=== PATIENT | female | born 1945 | race African-American/Black ===

== ENCOUNTER → 2016-10-16 | Outpatient (CLI) | payer MEDICARE, BC | LOC: RAD 12:40 | PROVIDERS: ATTEND Family Medicine | DX: Z12.31 Encounter for screening mammogram for malignant neoplasm of breast (principal); R59.0 Localized enlarged lymph nodes; E04.2 Nontoxic multinodular goiter | CPT/HCPCS: 76536; G0202; 77067 ==

== ENCOUNTER → 2016-10-30 | Outpatient (CLI) | payer MEDICARE, BC | LOC: RAD 10:54 | PROVIDERS: ATTEND Internal Medicine Gastroenterology | DX: K76.0 Fatty (change of) liver, not elsewhere classified (principal) | CPT/HCPCS: 76705 ==

== ENCOUNTER → 2016-12-12 | Outpatient (CLI) | payer MEDICARE, BC ==
[2016-12-12 15:38] LABS: FREE T3 3.13 pg/mL (2.77-5.27)
[2016-12-12 15:52] LABS: THYROID STIMULATING HORMONE 1.18 uIU/mL (0.47-4.68)
== END ==
LOC: OD 14:12
PROVIDERS: ATTEND Surgery
DX: E04.1 Nontoxic single thyroid nodule (principal)
CPT/HCPCS: 36415; 84439; 84443; 84481

== ENCOUNTER 2019-03-13 14:16 | Inpatient (IN) | payer MEDICARE, OTHER ==
--- NOTE | 2019-03-13 14:36 | ER Document Report ---
ED Medical Screen (RME) - General Chief Complaint: Hip Pain Stated Complaint: WEAKNESS Time Seen by Provider: 03/13/19 14:28 Primary Care Provider: XENA PADRON MD [Primary Care Provider] - Follow up as needed Mode of Arrival: Medic Information source: Patient, Emergency Med Personnel Notes: 73-year-old female with history of diabetes presents emergency department with complaints of weakness. EMS reports patient fell out of bed yesterday , she laid on the floor for 5 hours. Family noticed some change in speech. Also complains of weakness when she stands up. Complains of right hip pain with movement. Patient is calm and answering all questions appropriately at this time. I have greeted and performed a rapid initial assessment of this patient. A c omprehensive ED assessment and evaluation of the patient, analysis of test results and completion of the medical decision making process will be conducted by additional ED providers. Dictation of this chart was performed using voice recognition software; therefore, there may be some unintended grammatical errors. TRAVEL OUTSIDE OF THE [place] IN LAST 30 DAYS: No - Related Data Allergies/Adverse Reactions: No Known Allergies Allergy (Verified 08/23/15 10:26) Past Medical History - Past Medical History Cardiac Medical History: Reports: Hx Atrial Fibrillation - [place] 2010, Hx Coronary Artery Disease, Hx Hypercholesterolemia - DX TEN YEARS AGO, Hx Hypertension - DX 20 YEARS AGO Denies: Hx Heart Attack Pulmonary Medical History: Denies: Hx Asthma, Hx Bronchitis, Hx COPD, Hx Pneumonia Neurological Medical History: Denies: Hx Cerebrovascular Accident, Hx Seizures Endocrine Medical History: Reports: Hx Diabetes Mellitus Type 2 - DX IN 1984 GI Medical History: Reports: Hx Gastroesophageal Reflux Disease - DX [place] 2007, Hx Hiatal Hernia - [place] 2009 Musculoskeltal Medical History: Reports Hx Arthritis Psychiatric Medical History: Reports: Hx Anxiety - DX 10 YEARS AGO, Hx Depression - DX IN 1998 Past Surgical History: Reports: Hx Hysterectomy, Hx Open Heart Surgery - [place] 2001, Hx Oral Surgery. Denies: Hx Adenoidectomy, Hx Pacemaker - Immunizations Hx Diphtheria, Pertussis, Tetanus Vaccination: Yes Doctor's Discharge - Discharge Referrals: XENA PADRON MD [Primary Care Provider] - Follow up as needed
[2019-03-13 14:40] LABS: ABSOLUTE EOSINOPHILS # (AUTO) 0.1 10^3/uL (0.0-0.6); ABSOLUTE LYMPHOCYTES (AUTO) 1.5 10^3/uL (0.5-4.7); ABSOLUTE MONOCYTES (AUTO) 0.4 10^3/uL (0.1-1.4); ABSOLUTE NEUT (AUTO) 4.8 10^3/uL (1.7-8.2); BASOPHILS % (AUTO) 0.6 % (0-2); EOSINOPHILS % (AUTO) 1.6 % (0-6); HEMATOCRIT 35.3 % (36.0-47.0); HEMOGLOBIN 11.6 g/dL (12.0-15.5); LYMPHOCYTES % (AUTO) 21.9 % (13-45); MEAN CORPUSCULAR HEMOGLOBIN 26.6 pg (27.0-33.4); MEAN CORPUSCULAR HGB CONC 32.9 g/dL (32.0-36.0); MEAN CORPUSCULAR VOLUME 81 fl (80-97); MONOCYTES % (AUTO) 5.6 % (3-13); PLATELET COUNT 236 10^3/uL (150-450); RED BLOOD COUNT 4.36 10^6/uL (3.72-5.28); RED CELL DISTRIBUTION WIDTH 14.5 % (11.5-14.0); SEGMENTED NEUTROPHILS % (AUTO) 70.3 % (42-78); TOTAL CELLS COUNTED % (AUTO) 100 %; WHITE BLOOD COUNT 6.8 10^3/uL (4.0-10.5)
[2019-03-13 14:46] LABS: INTERNATIONAL RATION (INR) 1.19; PROTHROMBIN TIME 15.2 SEC (11.4-15.4)
[2019-03-13 14:47] LABS: PARTIAL THROMBOPLASTIN TIME 31.9 SEC (23.5-35.8)
[2019-03-13 14:59] LABS: ALBUMIN 4.3 g/dL (3.5-5.0); ALKALINE PHOSPHATASE 53 U/L (38-126); ANION GAP 12 (5-19); ASPARTATE AMINO TRANSFERASE 17 U/L (14-36); BILIRUBIN,DIRECT 0.1 mg/dL (0.0-0.4); BILIRUBIN,TOTAL 0.4 mg/dL (0.2-1.3); BLOOD UREA NITROGEN 25 mg/dL (7-20); CALCIUM 10.5 mg/dL (8.4-10.2); CARBON DIOXIDE 26 mmol/L (22-30); CHLORIDE 102 mmol/L (98-107); CREATINE KINASE 63 U/L (30-135); GLUCOSE 306 mg/dL (75-110); TOTAL PROTEIN 7.1 g/dL (6.3-8.2)
[2019-03-13 15:11] LABS: CREATINE KINASE MB 0.76 ng/mL (<4.55)
[2019-03-13 15:12] LABS: TROPONIN I < 0.012 ng/mL
--- NOTE | 2019-03-13 15:35 | RADIOLOGY REPORT (SQ) ---
EXAM DESCRIPTION: HIP RIGHT AP/LATERAL COMPLETED DATE/TIME: 03/13/2019 3:01 pm REASON FOR STUDY: fall, pain with movement COMPARISON: None. NUMBER OF VIEWS: Two views. TECHNIQUE: AP pelvis and additional surgical lateral view of the right hip. LIMITATIONS: None. FINDINGS: MINERALIZATION: Normal. RIGHT HIP: No fracture or dislocation. No worrisome bone lesions. LEFT HIP: No fracture or dislocation. No worrisome bone lesions. PUBIS AND ISCHIUM: No fracture. PELVIS: No fracture. SACRUM: No fracture or dislocation. No worrisome bone lesions. LOWER LUMBAR SPINE: Bilateral facet arthropathy at L5-S1 SOFT TISSUES: Atherosclerotic arterial vascular calcifications OTHER: No other significant finding. IMPRESSION: No acute fracture TECHNICAL DOCUMENTATION: JOB ID: [id number] [employer]- All Rights Reserved Reading location - IP/workstation name: [email or web address]
--- NOTE | 2019-03-13 15:37 | RADIOLOGY REPORT (SQ) ---
EXAM DESCRIPTION: CT HEAD WITHOUT COMPLETED DATE/TIME: 03/13/2019 3:19 pm REASON FOR STUDY: fell out of bed yesterday COMPARISON: CT brain 04/10/2012 TECHNIQUE: Axial images acquired through the brain without intravenous contrast. Images reviewed wi th bone, brain and subdural windows. Additional sagittal and coronal reconstructions were generated. Images stored on PACS. All CT scanners at this facility use dose modulation, iterative reconstruction, and/or weight based d osing when appropriate to reduce radiation dose to as low as reasonably achievable (ALARA). [facility]: Dose Right [facility]: CareDose [facility]: Dose Right [facility]: Teradose 4D [facility]: Smart Expanite RADIATION DOSE: CT Rad equipment meets quality standard of care and radiation dose reduction techniq ues were employed. CTDIvol: 53.2 mGy. DLP: 964 mGy-cm. mGy. LIMITATIONS: None. FINDINGS: VENTRICLES: Normal size and contour. CEREBRUM: No masses. No hemorrhage. No midline shift. No evidence for acute infarction. Age-approp riate bifrontal and biparietal small vessel disease with low attenuation in the hemispheric white mat ter CEREBELLUM: No masses. No hemorrhage. No alteration of density. No evidence for acute infarction. EXTRAAXIAL SPACES: No fluid collections. No masses. ORBITS AND GLOBE: No intra- or extraconal masses. Normal contour of globe without masses. Post bila teral cataract surgery CALVARIUM: No fracture. PARANASAL SINUSES: No fluid or mucosal thickening. SOFT TISSUES: No mass or hematoma. OTHER: No other significant finding. IMPRESSION: No acute findings EVIDENCE OF ACUTE STROKE: NO. COMMENT: Quality ID # [id number]: Final reports with documentation of one or more dose reduction techniques (e.g., Automated exposure control, adjustment of the mA and/or kV according to patient size, use of iterative reconstruction technique) TECHNICAL DOCUMENTATION: JOB ID: [id number] [employer]- All Rights Reserved Reading location - IP/workstation name: [email or web address]
[2019-03-13 16:18] LABS: APPEARANCE,URINE CLEAR; BILIRUBIN,URINE NEGATIVE (NEGATIVE); COLOR,URINE YELLOW; GLUCOSE, URINE 150 mg/dL (NEGATIVE); KETONES,URINE NEGATIVE (NEGATIVE); LEUKOCYTE ESTERASE,URINE NEGATIVE (NEGATIVE); NITRITE,URINE NEGATIVE (NEGATIVE); PROTEIN,URINE NEGATIVE (NEGATIVE); URINE SPECIFIC GRAVITY 1.016; UROBILINOGEN,URINE NEGATIVE mg/dL (<2.0)
[2019-03-13] MEDS ORDERED: ASPIRIN 325 MG TABLET PO ONE (21:10)
[2019-03-13 22:04] LABS: VENOUS BLOOD BASE EXCESS -1.5 mmol/L; VENOUS BLOOD HCO3 24.7 mmol/L (20-32); VENOUS BLOOD PCO2 47.9 mmHg (35-63); VENOUS BLOOD PH 7.33 (7.30-7.42)
--- NOTE | 2019-03-13 22:04 | EKG REPORT ---
SEVERITY:- ABNORMAL ECG - SINUS RHYTHM BORDERLINE LEFT AXIS DEVIATION BORDERLINE R WAVE PROGRESSION, ANTERIOR LEADS ABNORMAL T, CONSIDER ISCHEMIA, LATERAL LEADS : Confirmed by: Sukhjinder Tapia MD 13-Mar-2019 22:04:03
--- NOTE | 2019-03-13 23:33 | ER Document Report ---
ED General - General Chief Complaint: Hip Pain Stated Complaint: WEAKNESS Time Seen by Provider: 03/13/19 14:28 Mode of Arrival: Medic Notes: Patient is a 73-year-old female presents to the emergency department for gene ralized weakness. Patient's son is in the room. States yesterday at 1600 hrs., over 24 hours ago he noticed patient had right-sided drooping and generalized weakness. Son states patient is a diabetic and he thought potentially her blood sugars were "off." States he did feed the patient and then she never really went to sleep. States today she was attempting to get out of bed when she slipped. Patient states she "slid" out of the bed onto the floor. States she did sit there for an extended period of time when she was waiting for her son to come home. States when son attempted to help the patient up he inevitably dropped her onto her right hip. Patient's denying hitting her head, neck. Patient's denying any loss of consciousness. Patient states she overall just feels "weak." Patient's denying chest pain, shortness of breath, abdominal pain, dysuria, diarrhea. Son is in the room with patient voicing that the patient continues with right- sided facial droop. Past medical history: Diabetes, hyperlipidemia, DVT Medications: Metoprolol, metformin, HCTZ, Xarelto, losartan, aspirin, glipizide, sertraline TRAVEL OUTSIDE OF THE [place] IN LAST 30 DAYS: No - Related Data Allergies/Adverse Reactions: No Known Allergies Allergy (Verified 08/23/15 10:26) Past Medical History - General Information source: Patient, Emergency Med Personnel - Social History Smoking Status: Current Every Day Smoker Chew tobacco use (# tins/day): No Frequency of alcohol use: None Drug Abuse: None Family History: Reviewed & Not Pertinent Patient has suicidal ideation: No Patient has homicidal ideation: No - Past Medical History Cardiac Medical History: Reports: Hx Atrial Fibrillation - [place] 2010, Hx Coronary Artery Disease, Hx Hypercholesterolemia - DX TEN YEARS AGO, Hx Hypertension - DX 20 YEARS AGO Denies: Hx Heart Attack Pulmonary Medical History: Denies: Hx Asthma, Hx Bronchitis, Hx COPD, Hx Pneumonia Neurological Medical History: Denies: Hx Cerebrovascular Accident, Hx Seizures Endocrine Medical History: Reports: Hx Diabetes Mellitus Type 2 - DX [place] 1984 GI Medical History: Reports: Hx Gastroesophageal Reflux Disease - DX [place] 2007, Hx Hiatal Hernia - [place] 2009 Musculoskeletal Medical History: Reports Hx Arthritis Psychiatric Medical History: Reports: Hx Anxiety - DX 10 YEARS AGO, Hx Depression - DX [place] 1998 Past Surgical History: Reports: Hx Hysterectomy, Hx Open Heart Surgery - [place] 2001, Hx Oral Surgery. Denies: Hx Adenoidectomy, Hx Pacemaker - Immunizations Hx Diphtheria, Pertussis, Tetanus Vaccination: Yes Hx Pneumococcal Vaccination: 03/23/15 Review of Systems - Review of Systems Constitutional: denies: Fever EENT: No symptoms reported Cardiovascular: See HPI Respiratory: No symptoms reported Gastrointestinal: No symptoms reported Genitourinary: No symptoms reported Female Genitourinary: No symptoms reported Musculoskeletal: See HPI Skin: No symptoms reported Hematologic/Lymphatic: See HPI Neurological/Psychological: See HPI Physical Exam - Vital signs Vitals: Resp BP Pulse Ox 12 185/60 H 100 03/13/19 14:26 03/13/19 14:26 03/13/19 14:26 - Notes Notes: GENERAL: Alert, interacts well. Right facial droop noted. No slurred speech noted. HEAD: Normocephalic, atraumatic. EYES: Pupils equal, round, and reactive to light. Extraocular movements intact. ENT: Oral mucosa moist, tongue midline. Nares patent, no nasal septal hematoma, TM's intact. NECK: Full range of motion. Supple. Trachea midline. LUNGS: Clear to auscultation bilaterally, no wheezes, rales, or rhonchi. No respiratory distress. HEART: Regular rate and rhythm. No murmur ABDOMEN: Soft, non-tender. Non-distended. Bowel sounds present in all 4 quadrants. EXTREMITIES: Moves all 4 extremities spontaneously. No edema, normal radial and dorsalis pedis pulses bilaterally. No cyanosis. 5 out of 5 strength noted left upper and lower extremity. 4 out of 4 strength noted right upper and lower extremity. Right pronator drift noted. BACK: no cervical, thoracic, lumbar midline tenderness. No saddle anesthesia, normal distal neurovascular exam. NEUROLOGICAL: Alert and oriented x3. Normal speech. PSYCH: Normal affect, normal mood. SKIN: Warm, dry, normal turgor. No rashes or lesions noted. Course - Re-evaluation Re-evalutation: [place] stroke scale noted to be 2 with facial droop and right pronator drift. MENDS noted to be 5. Patient's blood sugar was initially noted to be elevated. On repeat examination upon my taking over care of the patient it was noted to be at 66. Patient has been alert and oriented the entire time in the emergency department. Patient was then given something to eat. Repeat blood sugar was noted to be 168. Patient continues with generalized weakness and right-sided facial droop despite correction of her blood sugars. I have discussed this case with hospitalist Dr. Yates. He will admit the patient to [facility]. - Vital Signs Vital signs: Temp Pulse Resp BP Pulse Ox 98.2 F 71 16 157/59 H 100 03/14/19 04:48 03/14/19 04:48 03/14/19 04:48 03/14/19 04:48 03/14/19 04:48 - Laboratory Result Diagrams: 03/14/19 05:34 03/14/19 05:34 Laboratory results interpreted by me: 03/13/19 03/13/19 03/13/19 14:31 14:31 14:36 Hgb 11.6 L Hct 35.3 L MCH 26.6 L RDW 14.5 H BUN 25 H Est GFR (MDRD) Non-Af 52 L Glucose 306 H POC Glucose 307 H Calcium 10.5 H Urine Glucose (UA) Urine Blood 03/13/19 03/13/19 03/13/19 16:00 21:29 22:26 Hgb Hct MCH RDW BUN Est GFR (MDRD) Non-Af Glucose POC Glucose 65 L 66 L Calcium Urine Glucose (UA) 150 H Urine Blood SMALL H 03/13/19 23:07 Hgb Hct MCH RDW BUN Est GFR (MDRD) Non-Af Glucose POC Glucose 168 H Calcium Urine Glucose (UA) Urine Blood Discharge - Discharge Clinical Impression: CVA (cerebral vascular accident) Qualifiers: CVA mechanism: unspecified Qualified Code(s): I63.9 - Cerebral infarction, unspecified Condition: Stable Disposition: ADMITTED INPATIENT Admitting Provider: Trudy (Hospitalist) Unit Admitted: [facility]
[2019-03-14] MEDS ORDERED: MAGNESIUM HYDROXIDE SUSP 30 ML UDCUP PO PRN (03:09)
[2019-03-14] MEDS ORDERED: TRAMADOL HCL 50 MG TABLET PO PRN (03:09)
[2019-03-14] MEDS ORDERED: TEMAZEPAM 15 MG CAPSULE PO PRN (03:09)
[2019-03-14] MEDS ORDERED: LABETALOL HCL INJ 20 MG/4 ML DISP.SYRIN IV PRN (03:09)
[2019-03-14] MEDS ORDERED: ONDANSETRON HCL INJ/PF 4 MG/2 ML SDV IV PRN (03:09)
[2019-03-14] MEDS ORDERED: GLUCAGON,HUMAN RECOMB 1 MG INJ IM PRN (03:09)
[2019-03-14] MEDS ORDERED: DOCUSATE SODIUM 100 MG CAPSULE PO PRN (03:09)
[2019-03-14] MEDS ORDERED: DEXTROSE 50%-WATER 25 GM/50 ML DISP.SYRIN IV PRN ×2 (03:09)
[2019-03-14] MEDS ORDERED: ACETAMINOPHEN 325 MG TABLET PO PRN (03:09)
[2019-03-14] MEDS ORDERED: DEXTROSE 40% GEL 15 GM TUBE PO PRN ×2 (03:09)
[2019-03-14] MEDS ORDERED: NALBUPHINE HCL INJ 10 MG/1 ML AMPULE IV PRN ×3 (03:16→03:38)
[2019-03-14] MEDS ORDERED: NICOTINE 21 MG/24 HR PATCH.TD24 TD PRN (03:16)
[2019-03-14] MEDS ORDERED: MAG HYDROX/AL HYDROX/SIMETH SUSP 30 ML UDCUP PO PRN (03:16)
[2019-03-14] MEDS ORDERED: LEVALBUTEROL HCL NEB 0.63 MG/3 ML AMPUL NEB PRN (03:16)
[2019-03-14] MEDS: INSULIN REG, HUMAN 100 UNIT/ML 3 ML VIAL (PYX) SUBCUT SCH ×5 (03:45→22:00)
--- NOTE | 2019-03-14 05:55 | PDOC H&P ---
History of Present Illness Admission Date/PCP: 03/13/19 23:41 JAMES GRACIA DO Patient complains of: Weakness History of Present Illness: BREANNA MADDOX is a 73 year old female who presented to the emergency room with a 2-day history of generalized weakness. Patient and her son relate that her weakness began on the afternoon of 03/12/2019 and has been persistent since onset. The weakness is moderate to severe and does prevent her from engaging in her usual activities. Patient's son has noted her right face to have more drooping than her usual baseline following 2 previous strokes. Patient admits that she went to get out of bed prior to coming to the hospital and was unable to stand up so she slid onto the floor in a sitting position. She complains of associated pain in her right hip but denies other associated or accompanying signs and symptoms. When her son returned home he brought her to the emergency room. In the emergency room she was found to have no evidence of acute intracranial hemorrhage and no acute CVA on her CAT scan of the head. And her laboratory evaluation was unremarkable with the exception of an elevated blood glucose. Patient was subsequently admitted to the hospital for further evaluation and treatment. Past Medical History Cardiac Medical History: Reports: Atrial Fibrillation, Coronary Artery Disease, Hyperlipidema, Hypertension Denies: Myocardial Infarction Pulmonary Medical History: Denies: Asthma, Bronchitis, Chronic Obstructive Pulmonary Disease (COPD), Pneumonia EENT Medical History: Denies: Cataracts, Ears - Hearing aids Neurological Medical History: Reports: Ischemic CVA Denies: Hemorrhagic CVA, Seizures Endocrine Medical History: Reports: Diabetes Mellitus Type 2 Denies: Diabetes Mellitus Type 1, Hyperthyroidism, Hypothyroidism Renal/ Medical History: Denies: Chronic Kidney Disease, Nephrolithiasis GI Medical History: Reports: Gastroesophageal Reflux Disease, Hiatal Hernia Denies: Cirrhosis, Crohn's Disease, Hepatitis, Ulcerative Colitis Musculoskeltal Medical History: Reports: Arthritis Denies: Gout Skin Medical History: Denies: Eczema, Psoriasis Psychiatric Medical History: Reports: Alcohol Dependency, Depression, Tobacco Dependency Denies: Substance Abuse Traumatic Medical History: Reports: None Hematology: Denies: Anemia, Bleeding Tendencies Infectious Medical History: Reports: None Past Surgical History Past Surgical History: Reports: Hysterectomy Social History Information Source: Patient, Relative Lives with: Family Smoking Status: Current Every Day Smoker Frequency of Alcohol Use: None Hx Recreational Drug Use: No Drugs: None Hx Prescription Drug Abuse: No - Advance Directive Resuscitation Status: Full Code Surrogate healthcare decision maker:: Abraham Maddox Family History Family History: DM, Hypertension. denies: CAD, Malignancy Parental Family History Reviewed: Yes Children Family History Reviewed: No Sibling(s) Family History Reviewed.: Yes Medication/Allergy Home Medications: Melatonin 3 mg PO QHS 08/21/11 Prilosec 20 mg PO DAILY 08/21/11 Losartan Potassium 100 mg PO DAILY 02/10/13 Sitagliptin Phos/Metformin HCl [Janumet 50-1,000 mg Tablet] 1,000 mg PO BID 02/10/13 Zolpidem Tartrate 1 tab PO QHS 02/10/13 Bupropion HCl [Wellbutrin Xl 300mg 24hr Tablet] 1 tab PO DAILY 08/22/15 Cyclobenzaprine HCl 5 mg PO ASDIR PRN 08/22/15 Fluticasone Furoate [Veramyst] 10 gm NS QHS 08/22/15 Hydrochlorothiazide 25 mg PO DAILY 08/22/15 Insulin Glargine,Hum.rec.anlog [Lantus] 35 unit SQ QHS 08/22/15 Nifedipine 10 mg PO DAILY 08/22/15 Rosuvastatin Calcium [Crestor 10 mg Tablet] 10 mg PO DAILY 08/22/15 Allergies/Adverse Reactions: No Known Allergies Allergy (Verified 08/23/15 10:26) Review of Systems Constitutional: PRESENT: as per HPI, weakness. ABSENT: chills, fever(s) Eyes: ABSENT: visual disturbances, other - Eye pain Ears: ABSENT: hearing changes, other - Ear pain Nose, Mouth, and Throat: ABSENT: mouth pain, sore throat Cardiovascular: ABSENT: chest pain, palpitations Respiratory: ABSENT: cough, dyspnea Gastrointestinal: ABSENT: abdominal pain, constipation, diarrhea, nausea, vomiting Genitourinary: ABSENT: dysuria, hematuria Musculoskeletal: PRESENT: as per HPI, muscle weakness, other - Pain on moving right hip. ABSENT: back pain, joint swelling Integumentary: ABSENT: pruritus, rash Neurological: PRESENT: as per HPI, focal weakness - Increased right facial droop, weakness. ABSENT: confusion, convulsions, memory loss, syncope Psychiatric: ABSENT: anxiety, depression Endocrine: ABSENT: cold intolerance, heat intolerance Hematologic/Lymphatic: ABSENT: easy bleeding, easy bruising Allergic/Immunologic: ABSENT: seasonal rhinorrhea Physical Exam Vital Signs: Temp Pulse Resp BP Pulse Ox 98.8 F 81 14 145/58 H 100 03/14/19 01:01 03/14/19 01:54 03/14/19 01:54 03/14/19 01:54 03/14/19 02:03 Intake & Output 03/12/19 03/13/19 03/14/19 23:59 23:59 23:59 Weight 72.1 kg General appearance: PRESENT: no acute distress, cooperative Head exam: PRESENT: atraumatic, normocephalic Eye exam: PRESENT: conjunctiva pink. ABSENT: conjunctival injection, scleral i cterus Ear exam: PRESENT: normal external ear exam. ABSENT: bleeding, drainage Mouth exam: PRESENT: dry mucosa, neck supple Neck exam: ABSENT: JVD, thyromegaly, tracheal deviation Respiratory exam: PRESENT: clear to auscultation [place], symmetrical, unlabored Cardiovascular exam: PRESENT: RRR. ABSENT: clicks, gallop, rubs Pulses: PRESENT: normal radial pulses, normal dorsalis pedis pul Vascular exam: PRESENT: normal capillary refill. ABSENT: pallor GI/Abdominal exam: PRESENT: normal bowel sounds, soft Rectal exam: PRESENT: deferred Extremities exam: PRESENT: tenderness - Mild tenderness to palpation over right hip. ABSENT: joint swelling, pedal edema Musculoskeletal exam: ABSENT: deformity, dislocation Neurological exam: PRESENT: alert, oriented to person, oriented to place, oriented to time, oriented to situation, CN II-XII grossly intact, motor sensory deficit - Weakness noted in all extremities right-sided weakness is more pronounced and left-sided weakness in both upper and lower extremities. Psychiatric exam: PRESENT: appropriate affect, normal mood Skin exam: PRESENT: dry, intact, warm. ABSENT: jaundice, rash, urticaria Results Laboratory Results: 03/13/19 14:31 03/13/19 14:31 03/13/19 03/13/19 03/13/19 14:31 14:31 16:00 WBC 6.8 RBC 4.36 Hgb 11.6 L Hct 35.3 L MCV 81 MCH 26.6 L MCHC 32.9 RDW 14.5 H Plt Count 236 Seg Neutrophils % 70.3 VBG pH VBG pCO2 VBG HCO3 VBG Base Excess Sodium 139.8 Potassium 4.0 Chloride 102 Carbon Dioxide 26 Anion Gap 12 BUN 25 H Creatinine 1.03 Est GFR ( Amer) > 60 Glucose 306 H Calcium 10.5 H Total Bilirubin 0.4 AST 17 Alkaline Phosphatase 53 Total Protein 7.1 Albumin 4.3 Urine Color YELLOW Urine Appearance CLEAR Urine pH 5.0 Ur Specific [employer] 1.016 Urine Protein NEGATIVE Urine Glucose (UA) 150 H Urine Ketones NEGATIVE Urine Blood SMALL H Urine Nitrite NEGATIVE Ur Leukocyte Esterase NEGATIVE Urine WBC (Auto) 1 Urine RBC (Auto) 0 03/13/19 21:40 WBC RBC Hgb Hct MCV MCH MCHC RDW Plt Count Seg Neutrophils % VBG pH 7.33 VBG pCO2 47.9 VBG HCO3 24.7 VBG Base Excess -1.5 Sodium Potassium Chloride Carbon Dioxide Anion Gap BUN Creatinine Est GFR ( Amer) Glucose Calcium Total Bilirubin AST Alkaline Phosphatase Total Protein Albumin Urine Color Urine Appearance Urine pH Ur Specific [employer] Urine Protein Urine Glucose (UA) Urine Ketones Urine Blood Urine Nitrite Ur Leukocyte Esterase Urine WBC (Auto) Urine RBC (Auto) 03/13/19 03/13/19 14:31 14:31 Creatine Kinase 63 CK-MB (CK-2) 0.76 Troponin I < 0.012 Impressions: Head CT 03/13/19 14:32 IMPRESSION: No acute findings EVIDENCE OF ACUTE STROKE: NO. Hip/Pelvis X-Ray 03/13/19 14:32 IMPRESSION: No acute fracture Assessment and Plan - Diagnosis (1) CVA (cerebral vascular accident) Qualifiers: CVA mechanism: unspecified Qualified Code(s): I63.9 - Cerebral infarction, unspecified Is this a current diagnosis for this admission?: Yes Plan: Patient will be admitted to the stroke protocol on [facility]. An MRI of the brain, a bilateral carotid Doppler study and an echocardiogram will be obtained. Patient will be evaluated by PT, OT and speech therapy. Patient will have therapy initiated as appropriate per protocol. She will be observed closely throughout her hospital stay. Daily CBCs and metabolic profiles will be obtained. Initial labs will include a hemoglobin A1c, a thyroid profile and a lipid profile. (2) HTN (hypertension) Qualifiers: Hypertension type: essential hypertension Qualified Code(s): I10 - Essential (primary) hypertension Is this a current diagnosis for this admission?: Yes Plan: Patient's hypertension will be treated by continuing her usual antihypertensive regimen. Her blood pressure will be monitored closely throughout her hospital stay. (3) HLD (hyperlipidemia) Qualifiers: Hyperlipidemia type: unspecified Qualified Code(s): E78.5 - Hyperlipidemia, unspecified Is this a current diagnosis for this admission?: Yes Plan: Patient's hyperlipidemia will be evaluated by obtaining a lipid profile. She will be continued on her usual therapeutic regimen and a cardiac diet. (4) Diabetes mellitus type 2 in nonobese Is this a current diagnosis for this admission?: Yes Plan: Patient will be continued on her usual diabetic regiment and a diabetic diet. Hemoglobin A1c will be obtained to assess efficacy of her current therapy. Before meals and at bedtime Accu-Cheks will be obtained with hyperglycemia being treated via sliding scale and a hypoglycemic protocol being in place. (5) Right hip pain Is this a current diagnosis for this admission?: Yes Plan: Patient's right hip pain will be treated with Nubain 5 to 10 mg IV every 3 hours on a as needed basis using a sliding scale for pain. - Time Time Spent with patient: 25-34 minutes Medications reviewed and adjusted accordingly: Yes Anticipated discharge: Home - Inpatient Certification Based on my medical assessment, after consideration of the patient's comorb idities, presenting symptoms, or acuity I expect that the services needed warrant INPATIENT care.: Yes I certify that my determination is in accordance with my understanding of Medicare's requirements for reasonable and necessary INPATIENT services [42 CFR 412.3e].: Yes Medical Necessity: Significant Comorbidiites Make Outpatient Treatment Too Risky, Need Close Monitoring Due to Risk of Patient Decompensation, Need For Continuous Telemetry Monitoring, Need for Neurological Checks, Need for Pain Control, Risk of Complication if Not Cared For in Hospital
[2019-03-14] MEDS ORDERED: HEPARIN SOD (PORCINE) 5,000 UNIT/ML 1 ML VIAL SUBCUT SCH (06:00)
[2019-03-14] MEDS: BUPROPION HCL 100 MG TABLET PO SCH ×3 (06:12→21:30)
[2019-03-14 06:24] LABS: HEMATOCRIT 33.8 % (36.0-47.0); HEMOGLOBIN 11.1 g/dL (12.0-15.5); MEAN CORPUSCULAR HEMOGLOBIN 26.7 pg (27.0-33.4); MEAN CORPUSCULAR VOLUME 81 fl (80-97); PLATELET COUNT 218 10^3/uL (150-450); RED BLOOD COUNT 4.17 10^6/uL (3.72-5.28); RED CELL DISTRIBUTION WIDTH 14.5 % (11.5-14.0); WHITE BLOOD COUNT 6.9 10^3/uL (4.0-10.5)
[2019-03-14 06:42] LABS: ALBUMIN 3.9 g/dL (3.5-5.0); ALKALINE PHOSPHATASE 52 U/L (38-126); ANION GAP 9 (5-19); ASPARTATE AMINO TRANSFERASE 16 U/L (14-36); BILIRUBIN,DIRECT 0.2 mg/dL (0.0-0.4); BILIRUBIN,TOTAL 0.4 mg/dL (0.2-1.3); BLOOD UREA NITROGEN 19 mg/dL (7-20); CARBON DIOXIDE 27 mmol/L (22-30); CHLORIDE 103 mmol/L (98-107); CHOLESTEROL 284.46 mg/dL (0-200); GLUCOSE 126 mg/dL (75-110); POTASSIUM 3.9 mmol/L (3.6-5.0); TOTAL PROTEIN 6.5 g/dL (6.3-8.2); TRIGLYCERIDES 144 mg/dL (<150)
[2019-03-14 07:36] LABS: DIRECT LDL 213 mg/dL (<100)
--- NOTE | 2019-03-14 09:17 | RADIOLOGY REPORT (SQ) ---
EXAM DESCRIPTION: MRI HEAD WITHOUT COMPLETED DATE/TIME: 03/14/2019 9:02 am REASON FOR STUDY: Weakness ?acute CVA COMPARISON: CT brain 03/13/2019 TECHNIQUE: Multiplanar imaging includes non-contrasted T1, T2, FLAIR, and diffusion with ADC map seq uences. Images stored on PACS. LIMITATIONS: None. FINDINGS: ANATOMY: No developmental anomalies. Normal vascular flow voids. Pituitary fossa normal. CSF SPACES: Normal in size and contour. No hemorrhage. CEREBRUM and POSTERIOR FOSSA: Diffusion-weighted images are positive for an acute nonhemorrhagic infa rct in the leftward half of the andreas, best shown on axial diffusion image . No mass effect. Minimal age-appropriate bifrontal and biparietal small vessel ischemic change in the hemispheric whit e matter, chronic. Internal auditory canals, cerebello-pontine angles, mastoids normal. DIFFUSION IMAGING: Positive for a small acute nonhemorrhagic infarct leftward half of the andreas. ORBITS: No masses. Globes post cataract surgery. PARANASAL SINUSES: No fluid levels. Mucosa normal. OTHER: No other significant finding. IMPRESSION: Acute nonhemorrhagic left pontine infarct. EVIDENCE OF ACUTE STROKE: YES. TECHNICAL DOCUMENTATION: JOB ID: [id number] [employer]- All Rights Reserved Reading location - IP/workstation name: [email or web address]
[2019-03-14] MEDS ORDERED: HYDROCHLOROTHIAZIDE 12.5 MG TABLET PO SCH (10:00)
[2019-03-14] MEDS ORDERED: CLOPIDOGREL BISULFATE 75 MG TABLET PO SCH (10:00)
[2019-03-14] MEDS ORDERED: LOSARTAN POTASSIUM 50 MG TABLET PO SCH (10:00)
[2019-03-14] MEDS: METFORMIN HCL 500 MG TABLET PO SCH ×2 (11:42→17:15)
[2019-03-14] MEDS: SERTRALINE HCL 50 MG TABLET PO SCH (11:42)
[2019-03-14] MEDS: ASPIRIN 81 MG TABLET, ENT COATED PO SCH (11:42)
[2019-03-14] MEDS: AMLODIPINE BESYLATE 2.5 MG TABLET PO SCH (11:42)
[2019-03-14] MEDS: FAMOTIDINE 20 MG TABLET PO SCH ×2 (11:42→21:27)
[2019-03-14] MEDS: SITAGLIPTIN PHOSPHATE 50 MG TABLET PO SCH ×2 (11:42→11:50)
--- NOTE | 2019-03-14 16:10 | PDOC PROGRESS REPORT ---
Subjective Progress Note for:: 03/14/19 Subjective:: [id number] female who presented to emergency room with 2 days of generalized weakness. Patient has a history of 2 previous CVAs will be admitted for recurrent CVA Reason For Visit: GENERALIZED WEAKNESS, ACUTE CVA Physical Exam Vital Signs: Temp Pulse Resp BP Pulse Ox 98.0 F 78 16 134/60 H 99 03/14/19 11:28 03/14/19 13:57 03/14/19 12:44 03/14/19 13:14 03/14/19 12:44 Intake & Output 03/13/19 03/14/19 03/15/19 06:59 06:59 06:59 Weight 65.4 kg General appearance: PRESENT: no acute distress Respiratory exam: PRESENT: clear to auscultation socorro. ABSENT: rales, rhonchi, wheezes Cardiovascular exam: PRESENT: RRR. ABSENT: diastolic murmur, rubs, systolic murmur Neurological exam: PRESENT: alert, motor sensory deficit, other - Patient has weakness of the right lower extremity graded 4/5. Otherwise no focal deficits. Psychiatric exam: PRESENT: appropriate affect, normal mood, other - Patient has no complaints. ABSENT: homicidal ideation, suicidal ideation Results Laboratory Results: 03/14/19 05:34 03/14/19 05:34 03/13/19 03/13/19 03/14/19 16:00 21:40 05:34 WBC 6.9 RBC 4.17 Hgb 11.1 L Hct 33.8 L MCV 81 MCH 26.7 L MCHC 33.0 RDW 14.5 H Plt Count 218 VBG pH 7.33 VBG pCO2 47.9 VBG HCO3 24.7 VBG Base Excess -1.5 Sodium Potassium Chloride Carbon Dioxide Anion Gap BUN Creatinine Est GFR ( Amer) Glucose Calcium Total Bilirubin AST Alkaline Phosphatase Total Protein Albumin Triglycerides Cholesterol LDL Cholesterol Direct VLDL Cholesterol HDL Cholesterol Urine Color YELLOW Urine Appearance CLEAR Urine pH 5.0 Ur Specific [place] 1.016 Urine Protein NEGATIVE Urine Glucose (UA) 150 H Urine Ketones NEGATIVE Urine Blood SMALL H Urine Nitrite NEGATIVE Ur Leukocyte Esterase NEGATIVE Urine WBC (Auto) 1 Urine RBC (Auto) 0 03/14/19 05:34 WBC RBC Hgb Hct MCV MCH MCHC RDW Plt Count VBG pH VBG pCO2 VBG HCO3 VBG Base Excess Sodium 138.9 Potassium 3.9 Chloride 103 Carbon Dioxide 27 Anion Gap 9 BUN 19 Creatinine 0.82 Est GFR ( Amer) > 60 Glucose 126 H Calcium 10.0 Total Bilirubin 0.4 AST 16 Alkaline Phosphatase 52 Total Protein 6.5 Albumin 3.9 Triglycerides 144 Cholesterol 284.46 H LDL Cholesterol Direct 213 H VLDL Cholesterol 29.0 HDL Cholesterol 47 Urine Color Urine Appearance Urine pH Ur Specific [place] Urine Protein Urine Glucose (UA) Urine Ketones Urine Blood Urine Nitrite Ur Leukocyte Esterase Urine WBC (Auto) Urine RBC (Auto) 03/13/19 03/13/19 14:31 14:31 Creatine Kinase 63 CK-MB (CK-2) 0.76 Troponin I < 0.012 Impressions: Head CT 03/13/19 14:32 IMPRESSION: No acute findings EVIDENCE OF ACUTE STROKE: NO. Hip/Pelvis X-Ray 03/13/19 14:32 IMPRESSION: No acute fracture Head MRI 03/14/19 00:00 IMPRESSION: Acute nonhemorrhagic left pontine infarct. EVIDENCE OF ACUTE STROKE: YES. Assessment and Plan - Diagnosis (1) CVA (cerebral vascular accident) Qualifiers: CVA mechanism: unspecified Qualified Code(s): I63.9 - Cerebral infarction, unspecified Is this a current diagnosis for this admission?: Yes Plan: Patient will be admitted to the stroke protocol on [facility]. An MRI of the brain, a bilateral carotid Doppler study and an echocardiogram will be obtained. Patient will be evaluated by PT, OT and speech therapy. Patient will have therapy initiated as appropriate per protocol. She will be observed closely throughout her hospital stay. Daily CBCs and metabolic profiles will be obtained. Initial labs will include a hemoglobin A1c, a thyroid profile and a lipid profile. 03/14/2019 patient had an MRI of the brain today that showed a acute nonhemorrhagic left pontine infarct, this would go along with her right-sided symptoms. Patient was supposed to be taking Xarelto as well as aspirin daily. The Xarelto was either for DVTs or atrial fib or both. We will hold the Plavix while the patient is also on heparin. (2) Diabetes mellitus type 2 in nonobese Is this a current diagnosis for this admission?: Yes Plan: Patient will be continued on her usual diabetic regiment and a diabetic diet. Hemoglobin A1c will be obtained to assess efficacy of her current therapy. Before meals and at bedtime Accu-Cheks will be obtained with hyperglycemia being treated via sliding scale and a hypoglycemic protocol being in place. 03/14/2019 patient's blood sugar on admission was 306 this morning is 126 and hemoglobin A1c is 8 patient is supposed to be taking glipizide 10 mg twice daily and Metformin 1000 mg twice daily. patient states she has been diabetic now for 30 years. (3) HTN (hypertension) Qualifiers: Hypertension type: essential hypertension Qualified Code(s): I10 - Essential (primary) hypertension Is this a current diagnosis for this admission?: Yes Plan: Patient's hypertension will be treated by continuing her usual antihypertensive regimen. Her blood pressure will be monitored closely throughout her hospital stay. 03/14/2019 at home patient was taking hydrochlorothiazide 25 mg daily losartan 100 mg daily Toprol XL 12.5 mg at bedtime. On admission blood pressure was elevated 185/60 however over the course of the last 24 hours her pressures come down to 134/60. Average would be around 160/65 Try to keep blood pressure about 160/70. Currently patient is only getting Norvasc 2.5 mg daily although she will get her Toprol tonight as well - Time Time Spent with patient: 35 or more minutes
[2019-03-14] MEDS: RIVAROXABAN 10 MG TABLET PO SCH (17:15)
[2019-03-14] MEDS: METOPROLOL SUCCINATE 25 MG TAB.SR.24H PO SCH (21:26)
[2019-03-14] MEDS: ATORVASTATIN CALCIUM 20 MG TABLET PO SCH (21:27)
[2019-03-14] MEDS: MELATONIN 3 MG TABLET PO SCH (21:27)
[2019-03-14] MEDS: INSULIN GLARGINE,HUM.REC.ANLOG 1,000 UNIT/10 ML VIAL SUBCUT SCH (21:38)
[2019-03-15] MEDS: BUPROPION HCL 100 MG TABLET PO SCH ×3 (06:05→23:15)
[2019-03-15] MEDS: METFORMIN HCL 500 MG TABLET PO SCH ×2 (08:44→16:07)
[2019-03-15] MEDS: INSULIN REG, HUMAN 100 UNIT/ML 3 ML VIAL (PYX) SUBCUT SCH ×4 (08:44→23:14)
--- NOTE | 2019-03-15 10:14 | PDOC PROGRESS REPORT ---
Subjective Progress Note for:: 03/15/19 Subjective:: 03/14/19 is a 89-year-old female who presented to emergency room with 2 days of generalized weakness. Patient has a history of 2 previous CVAs will be admitted for recurrent CVA 03/15/2019 patient states that her right leg is still weak and she feels that her right upper extremity is "clumsy". Patient also feels like she is having some difficulty with her speech. MRI is positive for a left pontine infarct Reason For Visit: GENERALIZED WEAKNESS, ACUTE CVA Physical Exam Vital Signs: Temp Pulse Resp BP Pulse Ox 98.3 F 82 17 158/61 H 96 03/15/19 08:25 03/15/19 08:25 03/15/19 08:25 03/15/19 08:25 03/15/19 08:25 Intake & Output 03/14/19 03/15/19 03/16/19 06:59 06:59 06:59 Intake Total 1075 Balance 1075 Weight 65.4 kg General appearance: PRESENT: no acute distress, other - Speaking in full sentenc es Respiratory exam: PRESENT: clear to auscultation socorro. ABSENT: rales, rhonchi, wheezes Cardiovascular exam: PRESENT: RRR. ABSENT: diastolic murmur, rubs, systolic murmur Neurological exam: PRESENT: alert, awake, oriented to person, oriented to place, oriented to time, oriented to situation, CN II-XII grossly intact, other - Right upper extremity and right lower extremity is weaker than left. No obvious facial weakness.. ABSENT: motor sensory deficit Psychiatric exam: PRESENT: appropriate affect, normal mood. ABSENT: homicidal ideation, suicidal ideation Results Laboratory Results: 03/14/19 05:34 03/14/19 05:34 03/13/19 03/13/19 14:31 14:31 Creatine Kinase 63 CK-MB (CK-2) 0.76 Troponin I < 0.012 Impressions: Head CT 03/13/19 14:32 IMPRESSION: No acute findings EVIDENCE OF ACUTE STROKE: NO. Hip/Pelvis X-Ray 03/13/19 14:32 IMPRESSION: No acute fracture Head MRI 03/14/19 00:00 IMPRESSION: Acute nonhemorrhagic left pontine infarct. EVIDENCE OF ACUTE STROKE: YES. Assessment and Plan - Diagnosis (1) CVA (cerebral vascular accident) Qualifiers: CVA mechanism: unspecified Qualified Code(s): I63.9 - Cerebral infarction, unspecified Is this a current diagnosis for this admission?: Yes Plan: Patient will be admitted to the stroke protocol on [facility]. An MRI of the brain, a bilateral carotid Doppler study and an echocardiogram will be obtained. Patient will be evaluated by PT, OT and speech therapy. Patient will have therapy initiated as appropriate per protocol. She will be observed closely throughout her hospital stay. Daily CBCs and metabolic profiles will be obtained. Initial labs will include a hemoglobin A1c, a thyroid profile and a lipid profile. 03/14/2019 patient had an MRI of the brain today that showed a acute nonhemorrhagic left pontine infarct, this would go along with her right-sided symptoms. Patient was supposed to be taking Xarelto as well as aspirin daily. The Xarelto was either for DVTs or atrial fib or both. We will hold the Plavix while the patient is also on heparin. 03/15/2019 patient is on 81 mg aspirin, Xarelto 10 mg daily, as well as heparin every 8 hours for DVT prophylaxis. Patient is waiting to have a carotid Doppler today as well as an echo patient will probably need another MRI scan of her brain prior to discharge or sooner if she continues to evolve with her infarct (2) Diabetes mellitus type 2 in nonobese Is this a current diagnosis for this admission?: Yes Plan: Patient will be continued on her usual diabetic regiment and a diabetic diet. Hemoglobin A1c will be obtained to assess efficacy of her current therapy. Before meals and at bedtime Accu-Cheks will be obtained with hyperglycemia being treated via sliding scale and a hypoglycemic protocol being in place. 03/14/2019 patient's blood sugar on admission was 306 this morning is 126 and hemoglobin A1c is 8 patient is supposed to be taking glipizide 10 mg twice daily and Metformin 1000 mg twice daily. patient states she has been diabetic now for 30 years. 03/15/2019 she is currently being managed with a sliding scale plus her regular meds. Glucose is under much better control today with morning fingerstick of 123 (3) HTN (hypertension) Qualifiers: Hypertension type: essential hypertension Qualified Code(s): I10 - Essential (primary) hypertension Is this a current diagnosis for this admission?: Yes Plan: Patient's hypertension will be treated by continuing her usual antihypertensive regimen. Her blood pressure will be monitored closely throughout her hospital stay. 03/14/2019 at home patient was taking hydrochlorothiazide 25 mg daily losartan 100 mg daily Toprol XL 12.5 mg at bedtime. On admission blood pressure was elevated 185/60 however over the course of the last 24 hours her pressures come down to 134/60. Average would be around 160/65 Try to keep blood pressure about 160/70. Currently patient is only getting Norv asc 2.5 mg daily although she will get her Toprol tonight as well 03/15/2019 last night and this morning her blood sugars have been fairly well controlled approximately 144/56, although it did go up a little bit this morning 158/61. This is a good range for her certainly I would not try to get it any lower than 144 systolic. With evidence of the ischemic stroke I think she will need a little pressure to perfuse - Time Time Spent with patient: 35 or more minutes
[2019-03-15] MEDS: AMLODIPINE BESYLATE 2.5 MG TABLET PO SCH (11:08)
[2019-03-15] MEDS: ASPIRIN 81 MG TABLET, ENT COATED PO SCH (11:08)
[2019-03-15] MEDS: SERTRALINE HCL 50 MG TABLET PO SCH (11:08)
[2019-03-15] MEDS: FAMOTIDINE 20 MG TABLET PO SCH ×2 (11:08→23:12)
--- NOTE | 2019-03-15 14:29 | RADIOLOGY REPORT (SQ) ---
EXAM DESCRIPTION: CAROTID DOPPLER COMPLETED DATE/TIME: 03/15/2019 1:56 pm REASON FOR STUDY: Weakness ?acute CVA COMPARISON: None. TECHNIQUE: Grayscale ultrasound, Doppler velocity and spectra, and color Doppler images acquired of the extra-cranial carotid and vertebral arteries. Images stored on PACS. LIMITATIONS: None. FINDINGS: RIGHT CAROTID CCA Velocities: Within normal limits. ICA Velocities Peak systolic 0.67 m/s. End diastolic 0.15 m/s. Proximal ICA/CCA peak systolic ratio 0.88. Focal plaque in the proximal internal carotid artery. LEFT CAROTID CCA Velocities: Within normal limits. ICA Velocities Peak systolic 0.75 m/s. End diastolic 0.18 m/s. Proximal ICA/CCA peak systolic ratio 0.86. Spectra normal. No significant plaque. VERTEBRAL ARTERIES: Antegrade flow. Normal waveforms. SUBCLAVIAN ARTERIES: No finding. OTHER: No other significant finding. IMPRESSION: NO HEMODYNAMICALLY SIGNIFICANT STENOSIS. COMMENT: Quality ID #[id number]: Velocity criteria are extrapolated from the diameter data as defined by t he Society of Radiologists in Ultrasound Consensus Conference. Radiology 2003: 229; 340-346. TECHNICAL DOCUMENTATION: JOB ID: [id number] [employer]- All Rights Reserved Reading location - IP/workstation name: [email or web address]
[2019-03-15] MEDS: RIVAROXABAN 10 MG TABLET PO SCH (16:08)
--- NOTE | 2019-03-15 19:18 | XCELERA REPORT ---
[address] [address] Transthoracic Echocardiogram Report Name: BREANNA ROJAS Age: 73 yrs Gender: Female : 1945 Patient Status: Inpatient Patient Location: [address] [place], [place] [address] Study Date: 03/15/2019 10:48 AM Height: 65 in Weight: 114 lb BSA: 1.6 m2 Procedure: A two-dimensional transthoracic echocardiogram with color flow and Doppler was performed. The study was technically difficult with many images being suboptimal in quality. Reason For Study: Weakness ?acute CVA History: CVA. Ordering Physician: SERGEY IRVING Performed By: Velma Howard Interpretation Summary There is no obvious cardiac source of embolus noted on this transthoracic echocardiogram. Follow-up with a RONAN is suggested if cardiac source is still suspected. The left ventricle is normal in size. There is mild concentric left ventricular hypertrophy. LV EF is 65% The left ventricular ejection fraction is within normal limits. Doppler measurements suggest impaired left ventricular relaxation, which is associated with grade I/IV or mild diastolic dysfunction The left ventricular wall motion is normal. There is no thrombus. Cannot assess ASD ,VSD , or PFO. The right ventricle is not well visualized secondary to technical limitations Right atrium not well visualized secondary to technical limitations The left atrial size is normal. There is no evidence of mitral valve prolapse. There is no vegetation seen on the mitral valve. There is no mitral valve stenosis. There is a trace amount of mitral regurgitation There is no aortic valvular vegetation. There is aortic sclerosis without aortic stenosis. There is no LVOT obstruction. No aortic regurgitation is present. There is no tricuspid stenosis. There is a trace amount of tricuspid regurgitation Right ventricular systolic pressure is normal. RVSp is 22t o 27 mm of Hg , with RA mean of 5 to 10. There is no pulmonic valvular stenosis. There is a trace amount of pulmonic regurgitation The aortic root is normal size. The inferior vena cava appeared normal and decreased > 50% with respiration (RAP 5-10 mmHg) There is no pericardial effusion. There is no obvious cardiac source of embolus noted on this transthoracic echocardiogram. Follow-up with a RONAN is suggested if cardiac source is still suspected MMode/2D Measurements & Calculations RVDd: 3.7 cm LVIDd: 3.3 cm FS: 37.2 % Ao root diam: 2.7 cm IVSd: 1.00 cm LVIDs: 2.1 cm EDV(Teich): 43.8 ml Ao root area: 5.8 cm2 LVPWd: 1.2 cm ESV(Teich): 13.8 ml EF(Teich): 68.4 % Doppler Measurements & Calculations MV E max ashkan: MV dec slope: Ao V2 max: LV V1 max P.9 cm/sec 324.0 cm/sec2 144.0 cm/sec 3.4 mmHg MV A max ashkan: MV dec time: 0.22 secAo max P.3 mmHgLV V1 max: 92.5 cm/sec 91.6 cm/sec MV E/A: 0.78 PA V2 max: PI end-d ashkan: TR max ashkan: 105.4 cm/sec 78.4 cm/sec 199.4 cm/sec PA max P.4 mmHg TR max P.6 mmHg Left Ventricle The left ventricle is normal in size. There is mild concentric left ventricular hypertrophy. LV EF is 65%. The left ventricular ejection fraction is within normal limits. Doppler measurements suggest impaired left ventricular relaxation, which is associated with grade I/IV or mild diastolic dysfunction. The left ventricular wall motion is normal. There is no thrombus. Cannot assess ASD ,VSD , or PFO. Right Ventricle The right ventricle is not well visualized secondary to technical limitations. Atria Right atrium not well visualized secondary to technical limitations. The left atrial size is normal. Mitral Valve There is no evidence of mitral valve prolapse. There is no vegetation seen on the mitral valve. There is no mitral valve stenosis. There is a trace amount of mitral regurgitation. Aortic Valve There is no aortic valvular vegetation. There is aortic sclerosis without aortic stenosis. There is no LVOT obstruction. No aortic regurgitation is present. Tricuspid Valve There is no tricuspid stenosis. There is a trace amount of tricuspid regurgitation. Right ventricular systolic pressure is normal. RVSp is 22t o 27 mm of Hg , with RA mean of 5 to 10. Pulmonic Valve There is no pulmonic valvular stenosis. There is a trace amount of pulmonic regurgitation. Great Vessels The aortic root is normal size. The inferior vena cava appeared normal and decreased > 50% with respiration (RAP 5-10 mmHg). Effusions There is no pericardial effusion. : SERGEY IRVING, Simi
[2019-03-15] MEDS: INSULIN GLARGINE,HUM.REC.ANLOG 1,000 UNIT/10 ML VIAL SUBCUT SCH (22:40)
[2019-03-15] MEDS: ATORVASTATIN CALCIUM 20 MG TABLET PO SCH (23:13)
[2019-03-15] MEDS: METOPROLOL SUCCINATE 25 MG TAB.SR.24H PO SCH (23:13)
[2019-03-15] MEDS: MELATONIN 3 MG TABLET PO SCH (23:13)
[2019-03-16] MEDS: BUPROPION HCL 100 MG TABLET PO SCH ×2 (06:05→14:03)
[2019-03-16] MEDS: INSULIN REG, HUMAN 100 UNIT/ML 3 ML VIAL (PYX) SUBCUT SCH ×2 (10:13→12:33)
[2019-03-16] MEDS: AMLODIPINE BESYLATE 2.5 MG TABLET PO SCH (10:17)
[2019-03-16] MEDS: FAMOTIDINE 20 MG TABLET PO SCH (10:17)
[2019-03-16] MEDS: ASPIRIN 81 MG TABLET, ENT COATED PO SCH (10:17)
[2019-03-16] MEDS: SERTRALINE HCL 50 MG TABLET PO SCH (10:17)
[2019-03-16] MEDS: METFORMIN HCL 500 MG TABLET PO SCH (10:17)
[2019-03-16 12:30] VITALS: BP 139/69
--- NOTE | 2019-03-17 18:22 | PDOC DISCHARGE SUMMARY ---
Impression - Admit/DC Date/PCP Admission Date/Primary Care Provider: 03/13/19 23:41 JAMES GRACIA DO Discharge Date: 03/16/19 - Discharge Diagnosis (1) Acute CVA (cerebrovascular accident) Is this a current diagnosis for this admission?: Yes (2) Diabetes mellitus type 2 in nonobese Is this a current diagnosis for this admission?: Yes (3) HLD (hyperlipidemia) Is this a current diagnosis for this admission?: Yes (4) HTN (hypertension) Is this a current diagnosis for this admission?: Yes - Additional Information Resuscitation Status: Full Code Discharge Diet: As Tolerated Discharge Activity: Activity As Tolerated, Balance Activity w/Rest Referrals: JAMES GRACIA DO [Primary Care Provider] - 03/25/19 4:00 pm Prescriptions: Atorvastatin Calcium [Lipitor 40 mg Tablet] 40 mg PO QHS #30 tablet Amlodipine Besylate [Norvasc 2.5 mg Tablet] 2.5 mg PO DAILY #30 tablet Home Medications: Losartan Potassium 100 mg PO DAILY 02/10/13 Hydrochlorothiazide 25 mg PO DAILY 08/22/15 Aspirin [Aspir-Low] 81 mg PO DAILY 03/14/19 Glipizide [Glucotrol 10 mg Tablet] 10 mg PO BID 03/14/19 Metformin HCl 1,000 mg PO BIDBS 03/14/19 Metoprolol Succinate [Toprol Xl 25 mg Tab.sr] 12.5 mg PO HSP PRN 03/14/19 Rivaroxaban [Xarelto] 2.5 mg PO BID 03/14/19 Sertraline HCl [Zoloft 50 mg Tablet] 50 mg PO DAILY 03/14/19 Amlodipine Besylate [Norvasc 2.5 mg Tablet] 2.5 mg PO DAILY #30 tablet 03/16/19 Atorvastatin Calcium [Lipitor 40 mg Tablet] 40 mg PO QHS #30 tablet 03/16/19 History of Present Illiness History of Present Illness: Admitting hospitalist's H&P: BREANNA ROJAS is a 73 year old female who presented to the emergency room with a 2-day history of generalized weakness. Patient and her son relate that her weakness began on the afternoon of 03/12/2019 and has been persistent since onset. The weakness is moderate to severe and does prevent her from engaging in her usual activities. Patient's son has noted her right face to have more drooping than her usual baseline following 2 previous strokes. Patient admits that she went to get out of bed prior to coming to the hospital and was unable to stand up so she slid onto the floor in a sitting position. She complains of associated pain in her right hip but denies other associated or accompanying signs and symptoms. When her son returned home he brought her to the emergency room. In the emergency room she was found to have no evidence of acute intracranial hemorrhage and no acute CVA on her CAT scan of the head. And her laboratory evaluation was unremarkable with the exception of an elevated blood glucose. Patient was subsequently admitted to the hospital for further evaluation and treatment. Hospital [facility] Hospital Course: Patient was admitted for possible CVA. She presented with generalized weakness but she does have a subtle but more prominent right-sided weakness. Her MRI did reveal an acute left pontine infarct. She was in a TPA candidate. She was started on atorvastatin. She was continued on antiplatelets. Amlodipine was also added to her antihypertensive regimen. Patient did have improvement in her weakness. She was evaluated by PT who recommended home health and home PT. Physical Exam Vital Signs: Temp Pulse Resp BP Pulse Ox 98.2 F 71 18 139/69 H 97 03/16/19 14:45 03/16/19 14:45 03/16/19 14:45 03/16/19 11:48 03/16/19 14:45 Intake & Output 03/16/19 03/17/19 03/18/19 06:59 06:59 06:59 Intake Total 1182 360 Balance 1182 360 Weight 145 lb 1.027 oz General appearance: PRESENT: no acute distress, well-developed, well-nourished Head exam: PRESENT: atraumatic, normocephalic Eye exam: PRESENT: conjunctiva pink, EOMI, PERRLA. ABSENT: scleral icterus Ear exam: PRESENT: normal external ear exam Mouth exam: PRESENT: moist, tongue midline Neck exam: ABSENT: carotid bruit, JVD, lymphadenopathy, thyromegaly Respiratory exam: PRESENT: clear to auscultation [place]. ABSENT: rales, rhonchi, wheezes Cardiovascular exam: PRESENT: RRR. ABSENT: diastolic murmur, rubs, systolic murmur Pulses: PRESENT: normal dorsalis pedis pul GI/Abdominal exam: PRESENT: normal bowel sounds, soft. ABSENT: distended, guarding, mass, organolmegaly, rebound, tenderness Rectal exam: PRESENT: deferred Neurological exam: PRESENT: alert, awake, oriented to person, oriented to place, oriented to time, oriented to situation Results Laboratory Results: WBC 6.9 10^3/uL (4.0-10.5) 03/14/19 05:34 RBC 4.17 10^6/uL (3.72-5.28) 03/14/19 05:34 Hgb 11.1 g/dL (12.0-15.5) L 03/14/19 05:34 Hct 33.8 % (36.0-47.0) L 03/14/19 05:34 MCV 81 fl (80-97) 03/14/19 05:34 MCH 26.7 pg (27.0-33.4) L 03/14/19 05:34 MCHC 33.0 g/dL (32.0-36.0) 03/14/19 05:34 RDW 14.5 % (11.5-14.0) H 03/14/19 05:34 Plt Count 218 10^3/uL (150-450) 03/14/19 05:34 Lymph % (Auto) 21.9 % (13-45) 03/13/19 14:31 [place] % (Auto) 5.6 % (3-13) 03/13/19 14:31 Eos % (Auto) 1.6 % (0-6) 03/13/19 14:31 Baso % (Auto) 0.6 % (0-2) 03/13/19 14:31 Absolute Neuts (auto) 4.8 10^3/uL (1.7-8.2) 03/13/19 14:31 Absolute Lymphs (auto) 1.5 10^3/uL (0.5-4.7) 03/13/19 14:31 Absolute Monos (auto) 0.4 10^3/uL (0.1-1.4) 03/13/19 14:31 Absolute Eos (auto) 0.1 10^3/uL (0.0-0.6) 03/13/19 14:31 Absolute Basos (auto) 0.0 10^3/uL (0.0-0.2) 03/13/19 14:31 Seg Neutrophils % 70.3 % (42-78) 03/13/19 14:31 PT 15.2 SEC (11.4-15.4) 03/13/19 14:31 INR 1.19 03/13/19 14:31 APTT 31.9 SEC (23.5-35.8) 03/13/19 14:31 VBG pH 7.33 (7.30-7.42) 03/13/19 21:40 VBG pCO2 47.9 mmHg (35-63) 03/13/19 21:40 VBG HCO3 24.7 mmol/L (20-32) 03/13/19 21:40 VBG Base Excess -1.5 mmol/L 03/13/19 21:40 Sodium 138.9 mmol/L (137-145) 03/14/19 05:34 Potassium 3.9 mmol/L (3.6-5.0) 03/14/19 05:34 Chloride 103 mmol/L (98-107) 03/14/19 05:34 Carbon Dioxide 27 mmol/L (22-30) 03/14/19 05:34 Anion Gap 9 (5-19) 03/14/19 05:34 BUN 19 mg/dL (7-20) 03/14/19 05:34 Creatinine 0.82 mg/dL (0.52-1.25) 03/14/19 05:34 Est GFR ( Amer) > 60 (>60) 03/14/19 05:34 Est GFR (MDRD) Non-Af > 60 (>60) 03/14/19 05:34 Glucose 126 mg/dL (75-110) H 03/14/19 05:34 POC Glucose 98 mg/dL (70-110) 03/16/19 11:51 Hemoglobin A1c % 8.0 % (4.7-6.0) H 03/14/19 05:34 Calcium 10.0 mg/dL (8.4-10.2) 03/14/19 05:34 Total Bilirubin 0.4 mg/dL (0.2-1.3) 03/14/19 05:34 Direct Bilirubin 0.2 mg/dL (0.0-0.4) 03/14/19 05:34 Neonat Total Bilirubin Not Reportable 03/14/19 05:34 Neonat Direct Bilirubin Not Reportable 03/14/19 05:34 Neonat Indirect Bili Not Reportable 03/14/19 05:34 AST 16 U/L (14-36) 03/14/19 05:34 ALT 13 U/L (<35) 03/14/19 05:34 Alkaline Phosphatase 52 U/L (38-126) 03/14/19 05:34 Creatine Kinase 63 U/L (30-135) 03/13/19 14:31 CK-MB (CK-2) 0.76 ng/mL (<4.55) 03/13/19 14:31 Troponin I < 0.012 ng/mL 03/13/19 14:31 Total Protein 6.5 g/dL (6.3-8.2) 03/14/19 05:34 Albumin 3.9 g/dL (3.5-5.0) 03/14/19 05:34 Triglycerides 144 mg/dL (<150) 03/14/19 05:34 Cholesterol 284.46 mg/dL (0-200) H 03/14/19 05:34 LDL Cholesterol Direct 213 mg/dL (<100) H 03/14/19 05:34 VLDL Cholesterol 29.0 mg/dL (10-31) 03/14/19 05:34 HDL Cholesterol 47 mg/dL (>40) 03/14/19 05:34 Urine Color YELLOW 03/13/19 16:00 Urine Appearance CLEAR 03/13/19 16:00 Urine pH 5.0 (5.0-9.0) 03/13/19 16:00 Ur Specific [place] 1.016 03/13/19 16:00 Urine Protein NEGATIVE mg/dL (NEGATIVE) 03/13/19 16:00 Urine Glucose (UA) 150 mg/dL (NEGATIVE) H 03/13/19 16:00 Urine Ketones NEGATIVE mg/dL (NEGATIVE) 03/13/19 16:00 Urine Blood SMALL (NEGATIVE) H 03/13/19 16:00 Urine Nitrite NEGATIVE (NEGATIVE) 03/13/19 16:00 Urine Bilirubin NEGATIVE (NEGATIVE) 03/13/19 16:00 Urine Urobilinogen NEGATIVE mg/dL (<2.0) 03/13/19 16:00 Ur Leukocyte Esterase NEGATIVE (NEGATIVE) 03/13/19 16:00 Urine WBC (Auto) 1 /HPF 03/13/19 16:00 Urine RBC (Auto) 0 /HPF 03/13/19 16:00 Squamous Epi Cells Auto <1 /HPF 03/13/19 16:00 Urine Ascorbic Acid NEGATIVE (NEGATIVE) 03/13/19 16:00 03/13/19 14:31 CK-MB (CK-2) 0.76 Troponin I < 0.012 Impressions: Head CT 03/13/19 14:32 IMPRESSION: No acute findings EVIDENCE OF ACUTE STROKE: NO. Hip/Pelvis X-Ray 03/13/19 14:32 IMPRESSION: No acute fracture Head MRI 03/14/19 00:00 IMPRESSION: Acute nonhemorrhagic left pontine infarct. EVIDENCE OF ACUTE STROKE: YES. Carotid Doppler Study 03/15/19 00:00 IMPRESSION: NO HEMODYNAMICALLY SIGNIFICANT STENOSIS. Plan Time Spent: Greater than 30 Minutes Stroke Is this a Stroke Patient?: Yes Stroke Pt being discharged on Anti-thrombolytic therapy?: No Reason(s) for not prescribing Anti-thrombolytic therapy:: Not indicated Reason(s) for not prescribing Anti-coagulation therapy:: Not indicated Stroke Pt being discharged on Statins?: Yes Acute Heart Failure - Is this a Heart Failure Patient?: No LVEF < 40%?: No- if no continue to question #3
== END 2019-03-16 15:51 | disposition home health service (06) | DRG 65 ==
LOC: ER 14:16 → EH 23:41 → 3N 03-14 02:47
PROVIDERS: ADMIT Emergency Medicine; ATTEND Emergency Medicine
DX: I63.19 Cerebral infarction due to embolism of other precerebral artery (principal); G81.91 Hemiplegia, unspecified affecting right dominant side; E78.5 Hyperlipidemia, unspecified; E11.9 Type 2 diabetes mellitus without complications; K21.9 Gastro-esophageal reflux disease without esophagitis; R29.810 Facial weakness; I48.91 Unspecified atrial fibrillation; M19.90 Unspecified osteoarthritis, unspecified site; F10.20 Alcohol dependence, uncomplicated; F32.9 Major depressive disorder, single episode, unspecified; F17.200 Nicotine dependence, unspecified, uncomplicated; Z90.710 Acquired absence of both cervix and uterus; Z83.3 Family history of diabetes mellitus; Z79.899 Other long term (current) drug therapy; Z79.4 Long term (current) use of insulin; Z79.02 Long term (current) use of antithrombotics/antiplatelets; Z79.82 Long term (current) use of aspirin; Z82.49 Family history of ischemic heart disease and other diseases of the circulatory system
CPT/HCPCS: 36415; 70450; 70551; 80053; 80061; 81001; 82550; 82553; 82803; 82962; 83036; 84484; 85025; 85027; 85610; 85730; 93005; 93010; 93306; 93880; 99285; J1815; J3490; J7614

== ENCOUNTER 2020-01-05 04:47 | Emergency (ER) | payer MEDICARE, OTHER ==
[2020-01-05 06:41] LABS: ABSOLUTE LYMPHOCYTES (AUTO) 0.6 10^3/uL (0.5-4.7); ABSOLUTE MONOCYTES (AUTO) 0.5 10^3/uL (0.1-1.4); ABSOLUTE NEUT (AUTO) 5.4 10^3/uL (1.7-8.2); BASOPHILS % (AUTO) 0.7 % (0-2); EOSINOPHILS % (AUTO) 0.1 % (0-6); HEMATOCRIT 36.6 % (36.0-47.0); HEMOGLOBIN 12.3 g/dL (12.0-15.5); LYMPHOCYTES % (AUTO) 9.9 % (13-45); MEAN CORPUSCULAR HEMOGLOBIN 26.4 pg (27.0-33.4); MEAN CORPUSCULAR HGB CONC 33.6 g/dL (32.0-36.0); MEAN CORPUSCULAR VOLUME 79 fl (80-97); MONOCYTES % (AUTO) 7.1 % (3-13); PLATELET COUNT 169 10^3/uL (150-450); RED BLOOD COUNT 4.65 10^6/uL (3.72-5.28); RED CELL DISTRIBUTION WIDTH 13.9 % (11.5-14.0); SEGMENTED NEUTROPHILS % (AUTO) 82.2 % (42-78); TOTAL CELLS COUNTED % (AUTO) 100 %; WHITE BLOOD COUNT 6.5 10^3/uL (4.0-10.5)
[2020-01-05 06:52] LABS: APPEARANCE,URINE SLIGHTLY-CLOUDY; BILIRUBIN,URINE NEGATIVE (NEGATIVE); COLOR,URINE YELLOW; GLUCOSE, URINE 150 mg/dL (NEGATIVE); KETONES,URINE TRACE mg/dL (NEGATIVE); LEUKOCYTE ESTERASE,URINE LARGE (NEGATIVE); NITRITE,URINE NEGATIVE (NEGATIVE); PROTEIN,URINE 30 mg/dL (NEGATIVE); URINE SPECIFIC GRAVITY 1.014; UROBILINOGEN,URINE NEGATIVE mg/dL (<2.0)
[2020-01-05 07:00] LABS: ALBUMIN 3.9 g/dL (3.5-5.0); ALKALINE PHOSPHATASE 62 U/L (38-126); ANION GAP 11 (5-19); ASPARTATE AMINO TRANSFERASE 31 U/L (14-36); BILIRUBIN,DIRECT 0.1 mg/dL (0.0-0.4); BILIRUBIN,TOTAL 0.4 mg/dL (0.2-1.3); BLOOD UREA NITROGEN 50 mg/dL (7-20); CALCIUM 9.3 mg/dL (8.4-10.2); CARBON DIOXIDE 25 mmol/L (22-30); CHLORIDE 100 mmol/L (98-107); GLUCOSE 361 mg/dL (75-110); POTASSIUM 4.2 mmol/L (3.6-5.0); TOTAL PROTEIN 6.9 g/dL (6.3-8.2)
--- NOTE | 2020-01-05 07:10 | ER Document Report ---
ED General - General Chief Complaint: Fall Injury Stated Complaint: WEAKNESS Time Seen by Provider: 01/05/20 05:52 Primary Care Provider: JAMES GRACIA DO [Primary Care Provider] - Follow up as needed Mode of Arrival: Medic Information source: Patient Notes: Patient is a 74-year-old female presenting to the emergency department via EMS after falling at home. Patient reports she was walking back from the bathroom when she tripped and fell. She is complaining of pain in the coccyx area. She denies striking her head, denies any loss of consciousness. Upon further questioning patient has had shortness of breath, chills and cough. Her son who lives in her home is COVID-19 positive. Patient denies any nausea, vomiting, diarrhea. She has not been tested for COVID-19. TRAVEL OUTSIDE OF THE [place] IN LAST 30 DAYS: No - Related Data Allergies/Adverse Reactions: No Known Allergies Allergy (Verified 01/05/20 05:00) Past Medical History - General Information source: Patient - Social History Smoking Status: Current Every Day Smoker Frequency of alcohol use: None Drug Abuse: None Family History: Reviewed & Not Pertinent Patient has homicidal ideation: No - Past Medical History Cardiac Medical History: Reports: Hx Atrial Fibrillation - [place] 2010, Hx Coronary Artery Disease, Hx Hypercholesterolemia - DX TEN YEARS AGO, Hx Hypertension - DX 20 YEARS AGO Denies: Hx Heart Attack Pulmonary Medical History: Denies: Hx Asthma, Hx Bronchitis, Hx COPD, Hx Pneumonia Neurological Medical History: Denies: Hx Cerebrovascular Accident, Hx Seizures Endocrine Medical History: Reports: Hx Diabetes Mellitus Type 2 - DX [place] 1984. Denies: Hx Diabetes Mellitus Type 1, Hx Hyperthyroidism, Hx Hypothyroidism GI Medical History: Reports: Hx Gastroesophageal Reflux Disease - DX [place] 2007, Hx Hiatal Hernia - [place] 2009. Denies: Hx Cirrhosis, Hx Crohn's Disease, Hx Hepatitis, Hx Ulcerative Colitis Musculoskeletal Medical History: Reports Hx Arthritis, Denies Hx Gout Skin Medical History: Denies Hx Eczema, Denies Hx Psoriasis Psychiatric Medical History: Reports: Hx Anxiety - DX 10 YEARS AGO, Hx Depression - DX [place] 1998 Infectious Medical History: Denies: Hx Hepatitis Past Surgical History: Reports: Hx Hysterectomy, Hx Open Heart Surgery - [place] 2001, Hx Oral Surgery. Denies: Hx Adenoidectomy, Hx Pacemaker - Immunizations Hx Diphtheria, Pertussis, Tetanus Vaccination: Yes Hx Pneumococcal Vaccination: 03/23/15 Review of Systems - Review of Systems Constitutional: Chills EENT: Nose congestion Cardiovascular: No symptoms reported. denies: Chest pain Respiratory: Cough. denies: Short of breath Gastrointestinal: Diarrhea - x2 days Genitourinary: No symptoms reported Female Genitourinary: No symptoms reported Musculoskeletal: Back pain - coccyx pain Skin: No symptoms reported Hematologic/Lymphatic: No symptoms reported Neurological/Psychological: No symptoms reported Physical Exam - Vital signs Vitals: Temp 99.8 F 01/05/20 05:00 - Notes Notes: PHYSICAL EXAMINATION: GENERAL: Well-appearing, appears to be stated age, no acute distress. HEAD: Atraumatic, normocephalic. EYES: Pupils equal round and reactive to light, extraocular movements intact, conjunctiva are normal. ENT: Nares patent, oropharynx clear without exudates. Moist mucous membranes. NECK: Normal range of motion, supple without lymphadenopathy LUNGS: Breath sounds clear to auscultation bilaterally and equal. No wheezes rales or rhonchi. HEART: Regular rate and rhythm without murmurs ABDOMEN: Soft, nontender, nondistended abdomen. No guarding, no rebound. No masses appreciated. Female : deferred Musculoskeletal: Normal range of motion, no pitting or edema. No cyanosis. NEUROLOGICAL: Cranial nerves grossly intact. Normal speech, . Normal sensory, motor exams PSYCH: Normal mood, normal affect. SKIN: Warm, Dry, normal turgor, no rashes or lesions noted. Course - Re-evaluation Re-evalutation: Laboratory 01/05/20 01/05/20 01/05/20 06:05 06:19 06:19 WBC 6.5 RBC 4.65 Hgb 12.3 Hct 36.6 MCV 79 L MCH 26.4 L MCHC 33.6 RDW 13.9 Plt Count 169 Lymph % (Auto) 9.9 L [place] % (Auto) 7.1 Eos % (Auto) 0.1 Baso % (Auto) 0.7 Absolute Neuts (auto) 5.4 Absolute Lymphs (auto) 0.6 Absolute Monos (auto) 0.5 Absolute Eos (auto) 0.0 Absolute Basos (auto) 0.0 Seg Neutrophils % 82.2 H Sodium 135.6 L Potassium 4.2 Chloride 100 Carbon Dioxide 25 Anion Gap 11 BUN 50 H Creatinine 1.57 H Est GFR ( Amer) 39 L Est GFR (MDRD) Non-Af 32 L Glucose 361 H Calcium 9.3 Total Bilirubin 0.4 Direct Bilirubin 0.1 Neonat Total Bilirubin Not Reportable Neonat Direct Bilirubin Not Reportable Neonat Indirect Bili Not Reportable AST 31 ALT 34 Alkaline Phosphatase 62 Total Protein 6.9 Albumin 3.9 Urine Color YELLOW Urine Appearance SLIGHTLY-CLOUDY Urine pH 5.0 Ur Specific [place] 1.014 Urine Protein 30 H Urine Glucose (UA) 150 H Urine Ketones TRACE H Urine Blood MODERATE H Urine Nitrite NEGATIVE Urine Bilirubin NEGATIVE Urine Urobilinogen NEGATIVE Ur Leukocyte Esterase LARGE H Urine WBC (Auto) 39 Urine RBC (Auto) 23 U Hyaline Cast (Auto) 143 Urine Bacteria (Auto) TRACE Squamous Epi Cells Auto 2 Urine Mucus (Auto) RARE Urine Ascorbic Acid NEGATIVE Chest X-Ray 01/05/20 05:53 IMPRESSION: NO ACUTE RADIOGRAPHIC FINDING IN THE CHEST. Sacrum and Coccyx X-Ray 01/05/20 05:53 IMPRESSION: No acute abnormality. Patient appears well, nontoxic. X-rays negative. She was tested for COVID-19 here in the emergency department. She has not been hypoxic. She feels well. She does have a slight bump in her creatinine as well as evidence of urinary tract infection. She will be given a liter of IV fluids and will be discharged home with close follow-up with her primary care. Patient understands the need to self quarantine until she gets results from her COVID-19 test. - Vital Signs Vital signs: Temp Pulse Resp BP Pulse Ox 99.4 F 92 16 134/52 H 96 01/05/20 05:43 01/05/20 05:11 01/05/20 05:11 01/05/20 05:11 01/05/20 05:11 - Laboratory Result Diagrams: 01/05/20 06:19 01/05/20 06:19 Laboratory results interpreted by me: 01/05/20 01/05/20 01/05/20 06:05 06:19 06:19 MCV 79 L MCH 26.4 L Lymph % (Auto) 9.9 L Seg Neutrophils % 82.2 H Sodium 135.6 L BUN 50 H Creatinine 1.57 H Est GFR ( Amer) 39 L Est GFR (MDRD) Non-Af 32 L Glucose 361 H Urine Protein 30 H Urine Glucose (UA) 150 H Urine Ketones TRACE H Urine Blood MODERATE H Ur Leukocyte Esterase LARGE H Discharge - Discharge Clinical Impression: Elevated serum creatinine UTI (urinary tract infection) Qualifiers: Urinary tract infection type: site unspecified Hematuria presence: without hematuria Qualified Code(s): N39.0 - Urinary tract infection, site not specified Condition: Stable Disposition: HOME, SELF-CARE Instructions: Urinary Tract Infection ([facility]) Additional Instructions: Please take medication as prescribed for urinary tract infection. Drink plenty of fluids. Your COVID-19 test is pending. Please self quarantine until this has resulted. Please return to the emergency department with new or worsening symptoms to include shortness of breath. Prescriptions: Cephalexin [Keflex] 500 mg PO BID #14 capsule Referrals: JAMES GRACIA DO [Primary Care Provider] - Follow up as needed
[2020-01-05] MEDS ORDERED: CEFTRIAXONE 1 GM/D5W RTU 1 GM/50 ML RTUPB IV ONE (07:30)
--- NOTE | 2020-01-05 07:56 | RADIOLOGY REPORT (SQ) ---
Sacrum and coccyx three view on 01/05/2020 at 7:31 AM CLINICAL INDICATION: Pain after fall COMPARISON: None FINDINGS: The SI joints are well aligned. Degenerative facet disease is noted in the lower lumbar spine. There is grade 1 spondylolisthesis at L5-S1 likely secondary to degenerative facet disease. There are no fractures. Vascular calcifications are noted. No other bony abnormality is noted. IMPRESSION: No acute abnormality.
[2020-01-05] MEDS ORDERED: NORMAL SALINE 1000 ML 1,000 ML IV ONE (08:24)
--- NOTE | 2020-01-05 08:52 | RADIOLOGY REPORT (SQ) ---
EXAM DESCRIPTION: CHEST SINGLE VIEW IMAGES COMPLETED DATE/TIME: 01/05/2020 7:45 am REASON FOR STUDY: fever/cough/covid exposure COMPARISON: Chest film 04/10/2012 EXAM PARAMETERS: NUMBER OF VIEWS: One view. TECHNIQUE: Single frontal radiographic view of the chest acquired. RADIATION DOSE: NA LIMITATIONS: None. FINDINGS: LUNGS AND PLEURA: No opacities, masses or pneumothorax. No pleural effusion. MEDIASTINUM AND HILAR STRUCTURES: No masses. Contour normal. HEART AND VASCULAR STRUCTURES: Old sternotomy for CABG. No cardiomegaly. BONES: No acute findings. HARDWARE: None in the chest. OTHER: No other significant finding. IMPRESSION: NO ACUTE RADIOGRAPHIC FINDING IN THE CHEST. TECHNICAL DOCUMENTATION: JOB ID: [id number] All Rights Reserved Reading location - IP/workstation name: [email or web address]
[2020-01-05 10:53] VITALS: BP 147/65
== END 2020-01-05 11:44 | disposition home or self-care (01) ==
LOC: ER 04:47
DX: N39.0 Urinary tract infection, site not specified (principal); M53.3 Sacrococcygeal disorders, not elsewhere classified; W19.XXXA Unspecified fall, initial encounter; Y93.89 Activity, other specified; Y92.009 Unspecified place in unspecified non-institutional (private) residence as the place of occurrence of the external cause; U07.1 COVID-19; R79.89 Other specified abnormal findings of blood chemistry; R06.02 Shortness of breath; R68.83 Chills (without fever); R05 Cough; R09.81 Nasal congestion; F17.200 Nicotine dependence, unspecified, uncomplicated; I25.10 Atherosclerotic heart disease of native coronary artery without angina pectoris; I10 Essential (primary) hypertension; E11.9 Type 2 diabetes mellitus without complications
CPT/HCPCS: 99285; 96361; 96365; 36415; 87086; 85025; 80053; 81001; 71045; 72220; U0003; J7030; J0696; C9803; 87635